=== PATIENT | male | born 1945 | race Caucasian/White ===

== ENCOUNTER 2019-11-27 06:27 | Day surgery (SDC) | payer BC, MEDICARE ==
[2019-11-27] MEDS ORDERED: FENTANYL PF 100MCG/2ML VIAL IV ONE (06:28)
[2019-11-27] MEDS ORDERED: MIDAZOLAM HCL 2MG/2ML VIAL IV ONE (06:28)
[2019-11-27] MEDS ORDERED: PROPOFOL 10 MG/ML VIAL IV ONE (06:28)
[2019-11-27] MEDS ORDERED: LIDOCAINE 2% MDV (20MG/ML) 20ML VIAL IV ONE (06:28)
[2019-11-27] MEDS ORDERED: RINGERS SOLUTION,LACTATED 1,000 ML IV ONE (07:14)
[2019-11-27] MEDS ORDERED: LIDOCAINE 1% W/EPI 1:100,000 MDV 20 ML VIAL SQ ONE (08:23)
[2019-11-27] MEDS ORDERED: BUPIVACAINE 0.5% W/EPI MPF 30 ML VIAL SQ ONE (08:23)
[2019-11-27] MEDS ORDERED: DEXAMETHASONE PRESERVATIVE FREE 10MG/ML VIAL SQ ONE (08:23)
--- NOTE | 2019-11-27 08:58 | Operative Note - [place] ---
DATE OF SURGERY: 11/27/2019 PREOPERATIVE DIAGNOSIS: CERVICAL SPONDYLOSIS WITHOUT MYELOPATHY, ICD-10 CODE M47.812. OPERATION: LEFT CERVICAL RHIZOTOMY C3-C4, C4-C5, AND C5-C6. SURGEON: Chris Back D.O. ANESTHESIA: Local sedation. ANESTHESIA PROVIDER: Roge Bey CRNA INDICATION: This patient presents with pain which is left sided neck and shoulder. Diagnostics show diffuse spondylitic change. The previous facet series 75% relief. Due to the failure of therapy and the success of the facet series, he presents for rhizotomy for more usp relief. His pain is aggravated and intensified with extension of his cervical spine. His current pain level 0-10 is an 8 to 9. PROCEDURE: Intravenous line, vital sign monitoring, IV sedation, prepped and draped, sterile technique. The patient was positioned prone. Sterile prep, sterile technique. On the left the cervical facets at C3-C4, C4-C5, and C5-C6 were marked, infiltrated with local, a 22-gauge rhizotomy cannula was positioned. Stimulation trial was conducted. Rhizotomy burn performed along with antiinflammatory into the sites. Topical antibiotic, sterile dressing was applied. Will monitor and evaluate. JOB NUMBER: [id number] MTDD
== END 2019-11-27 09:20 | disposition home or self-care (01) ==
LOC: SUR 06:27
PROVIDERS: ATTEND Pain Medicine Interventional Pain Medicine
DX: M47.812 Spondylosis without myelopathy or radiculopathy, cervical region (principal); Z94.2 Lung transplant status
CPT/HCPCS: J7120